=== PATIENT | female | born 1960 | race Caucasian/White ===

== ENCOUNTER 2016-07-31 09:31 | Day surgery (SDC) | payer OTHER ==
[2016-07-31] MEDS ORDERED: D5 LR 1000 ML 1,000 ML IV ONE (09:39)
[2016-07-31] MEDS ORDERED: DIPRIVAN VIAL 20 ML ONE (10:21)
[2016-07-31 11:15] VITALS: BP 120/70
== END 2016-07-31 11:15 | disposition home or self-care (01) ==
LOC: SURG1 09:31
PROVIDERS: ATTEND Internal Medicine Gastroenterology
PROC: 0DBH8ZX Excision of Cecum, Via Natural or Artificial Opening Endoscopic, Diagnostic (ICD-10-PCS; principal; 2016-07-31 11:30)
PROC: 0DJD8ZZ Inspection of Lower Intestinal Tract, Via Natural or Artificial Opening Endoscopic (ICD-10-PCS; principal; 2016-07-31 11:30)
PROC: 0DBM8ZX Excision of Descending Colon, Via Natural or Artificial Opening Endoscopic, Diagnostic (ICD-10-PCS; principal; 2016-07-31 11:30)
DX: Z12.11 Encounter for screening for malignant neoplasm of colon (principal); K64.8 Other hemorrhoids; K63.5 Polyp of colon; D12.4 Benign neoplasm of descending colon; D12.0 Benign neoplasm of cecum
CPT/HCPCS: A4217; J3490; J7120